=== PATIENT | male | born 1970 | race Hispanic/Latino ===

== ENCOUNTER 2016-10-01 19:18 | Emergency (ER) | payer OTHER ==
[2016-10-01] MEDS ORDERED: MORPHINE SULFATE INJ 10 MG/ML VIAL IV ONE (21:49)
--- NOTE | 2016-10-01 21:52 | CT ---
PROCEDURE: Cervical Spine Clinical History: hit in head with tree limb Indication: Same as above Comparison: None Technique: CT of the cervical spine was done without intravenous contrast, including axial, sagittal and coronal reconstructions. Findings: There is no CT evidence of acute cervical spinal fractures or dislocations. The craniovertebral junction appears unremarkable. There is also evidence of mild degenerative change, including osteophyte formation, reduction in the intervertebral disc spaces, endplate degenerative changes and facet arthropathy seen at few levels. Benign calcification of a segment of the posterior nuchal ligament is noted There is limited evaluation for acute or chronic intervertebral disc herniations or protrusions given the limitation of lack of intrathecal contrast. The prevertebral and the paravertebral soft tissues appear unremarkable. There is no gross evidence of epidural hematoma or paraspinal soft tissue fluid collections. The remainder of the visualized surrounding subcutaneous soft tissues and muscle structures are grossly unremarkable. The visualized airway appears unremarkable. The hyoid, cricoid and laryngeal cartilages are intact. The visualized segments of the bilateral parotid glands and the bilateral submandibular glands are unremarkable. There is no visualization of pathological lymphadenopathy in the region of the imaged neck. The bone mineralization is normal. The visualized lung apices are unremarkable . The sagittal reconstructed images demonstrate normal alignment The coronal reconstructed images demonstrate normal alignment. Impression: Negative for acute cervical bony trauma Location of Interpretation: Teleradiology. 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
[2016-10-01 22:29] VITALS: O2SAT 97
--- NOTE | 2016-10-01 23:32 | ED.PDOC ---
History of Present Illness - General Chief Complaint: Trauma Stated Complaint: Hit in head by tree limb Time Seen by Provider: 10/01/16 23:21 Source: patient, RN notes reviewed, Vital Signs reviewed Exam Limitations: no limitations - History of Present Illness Initial Comments: This 46 y/o male was trimming tree branches when an 8 ft. branch fell and hit him in the head and neck. Since he is on Eliquis, he was encouraged to come to the ED to get checked out. He has pain on the right crown and back of head, and the right neck. He also has pain in his lumbar spine. When the branch hit him, he fell about 16 feet and landed on his feet on the ground. He has no complaints of foot pain. No neurological signs or symptoms. Timing/Duration: 4-6 hours Severity: moderate Improving Factors: nothing Worsening Factors: nothing Associated Symptoms: denies symptoms Allergies/Adverse Reactions: Allergies NO KNOWN ALLERGY Allergy (Verified 10/01/16 22:09) Home Medications: Ambulatory Orders Apixaban [Eliquis] 5 mg PO DAILY 10/01/16 Cyclobenzaprine HCl [Flexeril] 10 mg PO TID PRN #20 tab 10/01/16 Cyclobenzaprine Tab (ER Disp) [Flexeril Tab (ER Dispense)] 10 mg PO TID PRN #6 tab 10/01/16 Losartan Potassium [Cozaar] 50 mg PO BID 10/01/16 Review of Systems - Review of Systems Constitutional: States: no symptoms reported EENTM: States: no symptoms reported. Denies: eye pain, blurred vision, ear pain Respiratory: States: no symptoms reported Cardiology: States: no symptoms reported Gastrointestinal/Abdominal: States: no symptoms reported Genitourinary: States: no symptoms reported Musculoskeletal: States: back pain, muscle pain, neck pain Skin: States: lesions Endocrine: States: no symptoms reported Hematologic/Lymphatic: States: no symptoms reported All other Systems: Reviewed and Negative Past Medical History (General) - Patient Medical History Hx Stroke: No Hx Asthma: No Hx Cardiac Disorders: Yes Hx Congestive Heart Failure: No Hx Pacemaker: Yes Hx Hypertension: Yes Hx Diabetes: No Hx MRSA: No Surgical History: pacemaker - Vaccination History Hx Tetanus, Diphtheria Vaccination: Yes Hx Influenza Vaccination: No Hx Pneumococcal Vaccination: No Immunizations Up to Date: Yes - Social History Hx Tobacco Use: No Hx Alcohol Use: No Family Medical History - Family History Mother Living Status: Still Living Physical Exam - Physical Exam General Appearance: Alert, Comfortable, No apparent distress Eye Exam: bilateral normal Ears, Nose, Throat: hearing grossly normal, normal ENT inspection Neck: full range of motion, tender lateral - mild Respiratory: chest non-tender, lungs clear, normal breath sounds, no respiratory distress, no accessory muscle use Cardiovascular/Chest: regular rate, rhythm, no edema, no gallop, no murmur Gastrointestinal/Abdominal: normal bowel sounds, non tender, soft, no organomegaly Back Exam: normal inspection, vertebral tenderness - upper L-spine Extremity: normal range of motion Neurologic: no motor/sensory deficits, alert, normal mood/affect, oriented x 3 Skin Exam: other - abrasions to right, upper arm and proximal forearm. Erythema where he was hit on the head as well at the crown and right posterior scalp. Progress - Progress Progress: 10/01/16 23:35 CT: Head: No acute process C-spine: No acute process L-spine: No acute process - Results/Orders Results/Orders: 10/01/16 10/01/16 10/01/16 21:01 21:25 22:05 Temperature 97.6 F Pulse Rate [ 88 88 88 left radial] Respiratory 20 20 20 Rate Blood Pressure 135/84 124/97 [Left Arm] O2 Sat by Pulse 99 97 Oximetry - EKG/XRAY/CT CT: Head, C-spine, L-spine - see Progress for results CT Ordered: Yes CT Interpretation Call Back: No - Report sent Departure - Departure Clinical Impression: Abrasion Hit by object Qualifiers: Encounter type: initial encounter Qualifier Code: (W22.8XXA) Striking against or struck by other objects, initial encounter Fall from ladder Qualifiers: Encounter type: initial encounter Qualifier Code: (W11.XXXA) Fall on and from ladder, initial encounter Contusion Qualifiers: Encounter type: initial encounter Contusion area: neck Qualifier Code: ( S10.93XA) Contusion of unspecified part of neck, initial encounter Neck strain Qualifiers: Encounter type: initial encounter Qualifier Code: (S16.1XXA) Strain of muscle, fascia and tendon at neck level, initial encounter Low back strain Qualifiers: Encounter type: initial encounter Qualifier Code: (S39.012A) Strain of muscle, fascia and tendon of lower back, initial encounter ICD-10 Supporting Text: Contusion to neck, upper arm, and forearm Time of Disposition: 23:40 Disposition: Discharge to Home or Self Care Condition: Excellent Departure Forms: ED Discharge - Pt. Copy, Patient Portal Self Enrollment Diet: resume usual diet Referrals: TEVIN BONILLA [Primary Care Provider] - 1-2 Weeks Prescriptions: Cyclobenzaprine HCl [Flexeril] 10 mg PO TID PRN #20 tab PRN Reason: Muscle Spasms Cyclobenzaprine Tab (ER Disp) [Flexeril Tab (ER Dispense)] 10 mg PO TID PRN #6 tab PRN Reason: Muscle Spasms Home Medications: Ambulatory Orders Apixaban [Eliquis] 5 mg PO DAILY 10/01/16 Cyclobenzaprine HCl [Flexeril] 10 mg PO TID PRN #20 tab 10/01/16 Cyclobenzaprine Tab (ER Disp) [Flexeril Tab (ER Dispense)] 10 mg PO TID PRN #6 tab 10/01/16 Losartan Potassium [Cozaar] 50 mg PO BID 10/01/16 Additional Instructions: Follow up in ED if symptoms worsen.
[2016-10-01] MEDS ORDERED: CYCLOBENZAPRINE TAB (ER DISP) 10 MG TAB ONE (23:47)
[2016-10-01] MEDS ORDERED: CYCLOBENZAPRINE TAB (ER DISP) 10 MG TAB PO ONE (23:49)
[2016-10-01 23:57] VITALS: BP 146/94; TEMP 98.7
--- NOTE | 2016-10-02 11:45 | CT ---
PROCEDURE: Head CLINICAL HISTORY: hit in head with tree limb INDICATION: Same as above Comparison: None TECHNIQUE: CT of the head was done without intravenous contrast was done in the orthogonal planes. FINDINGS: There is no intracranial hemorrhage, midline shift mass effect or acute focal infarct. If clinical concern exists regarding an acute ischemic/vascular pathology being responsible for patient's symptomatology, an MRI of the brain is more sensitive than the current study, in ruling out such a possibility. There is good moore/white matter differentiation. The ventricular system is normal. The mastoid air cells are unremarkable . The paranasal sinuses are unremarkable . There is no visualization of acute fractures involving the calvarium or the skull base. IMPRESSION: There is no acute intracranial abnormality. Place of interpretation: Teleradiology. 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
--- NOTE | 2016-10-18 23:58 | RAD ---
EXAM DESCRIPTION: Lumbar Spine 3 Views CLINICAL HISTORY: 46 years ,Male fall COMPARISON: None. TECHNIQUE: Three views of the lumbar spine. FINDINGS: Minimal retrolisthesis at L3-4 and L4-5 likely degenerative.Vertebral body heights appear maintained.No definite acute fractures.Anteriorly projecting spur from the superior L4 endplate.Degenerative changes in the facets most marked in the lower lumbar spine. IMPRESSION: No acute fracture is identified. Electronically signed by: Maico Muñoz MD 10/01/2016 9:49 PM FLOOR COVERER
== END 2016-10-01 23:57 | disposition home or self-care (01) ==
LOC: ER 19:18
DX: S10.93XA Contusion of unspecified part of neck, initial encounter (principal); S16.1XXA Strain of muscle, fascia and tendon at neck level, initial encounter; S39.012A Strain of muscle, fascia and tendon of lower back, initial encounter; Z79.02 Long term (current) use of antithrombotics/antiplatelets; I10 Essential (primary) hypertension; Z95.0 Presence of cardiac pacemaker; W22.8XXA Striking against or struck by other objects, initial encounter; W17.89XA Other fall from one level to another, initial encounter
CPT/HCPCS: 70450; 72100; 72125; 80053; 85025; 85610; 85730; J2270

== ENCOUNTER → 2017-05-21 | Outpatient (CLI) | payer BC, OTHER | END | disposition home or self-care (01) | LOC: GMAL 09:56 | PROVIDERS: ATTEND Family Medicine | DX: E29.1 Testicular hypofunction (principal) ==

== ENCOUNTER → 2018-11-23 | Outpatient (CLI) | payer BC ==
--- NOTE | 2018-11-23 16:47 | US ---
EXAM DESCRIPTION: Venous,Lower Extremity LT (accession [id number]), Venous,Lower Extremity RT (accession [id number]): Ultrasound. CLINICAL HISTORY: DEEP VEIN THROMBOPHLEBITIS COMPARISON: Duplex ultrasound evaluation of the left lower extremity deep venous system 12/17/2015. TECHNIQUE: Two -dimensional and doppler sonographic evaluation of the deep venous system of the bilateral lower extremities. FINDINGS: Doppler evaluation shows normal color flow and normal phasicity and augmentation of the bilateral common femoral veins, femoral veins, popliteal veins, greater saphenous vein, and peroneal veins, and Posterior tibial veins. These veins showed normal occlusion with transducer pressure. Two-dimensional survey showed no echogenic clot within these veins. IMPRESSION: Duplex ultrasound evaluation of the bilateral lower extremity deep venous systems showing no evidence of thrombosis. Electronically signed by: Babatunde Rice MD 11/23/2018 4:44 PM CDT
--- NOTE | 2018-11-23 16:47 | US ---
EXAM DESCRIPTION: Venous,Lower Extremity LT (accession [id number]), Venous,Lower Extremity RT (accession [id number]): Ultrasound. CLINICAL HISTORY: DEEP VEIN THROMBOPHLEBITIS COMPARISON: Duplex ultrasound evaluation of the left lower extremity deep venous system 12/17/2015. TECHNIQUE: Two -dimensional and doppler sonographic evaluation of the deep venous system of the bilateral lower extremities. FINDINGS: Doppler evaluation shows normal color flow and normal phasicity and augmentation of the bilateral common femoral veins, femoral veins, popliteal veins, greater saphenous vein, and peroneal veins, and Posterior tibial veins. These veins showed normal occlusion with transducer pressure. Two-dimensional survey showed no echogenic clot within these veins. IMPRESSION: Duplex ultrasound evaluation of the bilateral lower extremity deep venous systems showing no evidence of thrombosis. Electronically signed by: Babatunde Rice MD 11/23/2018 4:44 PM CDT
== END ==
LOC: US 13:00
PROVIDERS: ATTEND Internal Medicine Cardiovascular Disease
DX: I80.209 Phlebitis and thrombophlebitis of unspecified deep vessels of unspecified lower extremity (principal); I10 Essential (primary) hypertension

== ENCOUNTER → 2020-04-17 | Outpatient (CLI) | payer BC | END | disposition home or self-care (01) | LOC: GMAL 10:20 | PROVIDERS: ATTEND Family Medicine | DX: R19.7 Diarrhea, unspecified (principal) ==